=== PATIENT | female | born 1995 | race American Indian/Alaskan Native ===

== ENCOUNTER 2018-05-01 09:07 | Emergency (ER) | payer SELFPAY ==
[2018-05-01 10:05] LABS: Basophils % (Auto) 0.9 % (0.0-1.8); Eosinophils # (Auto) 0.1 K/mm3 (0.0-0.4); Eosinophils % (Auto) 2.1 % (0.0-4.3); Hematocrit 34.7 % (30.3-42.9); Hemoglobin 11.1 gm/dl (10.1-14.3); Lymphocytes # (Auto) 2.3 K/mm3 (1.2-5.4); Lymphocytes % (Auto) 42.3 % (13.4-35.0); Mean Corpuscular HGB Conc 32 % (30-34); Mean Corpuscular Volume 73 fl (79-97); Monocytes # (Auto) 0.4 K/mm3 (0.0-0.8); Monocytes % (Auto) 6.6 % (0.0-7.3); Platelet Count 311 K/mm3 (140-440); Red Blood Count 4.78 M/mm3 (3.65-5.03)
[2018-05-01 10:14] LABS: Mean Corpuscular Hemoglobin 23 pg (28-32)
--- NOTE | 2018-05-01 10:29 | Emergency Department Report ---
ED General Adult HPI - General Chief complaint: Arrhythmia/Palpitations Stated complaint: ANXIETY Time Seen by Provider: 05/01/18 10:12 Source: patient Mode of arrival: Ambulatory Limitations: No Limitations - History of Present Illness Initial comments: Ms. Snell is a 22-year-old female presents with 'feeling shaky". She has history of asthma and anemia. She stated that all of a sudden she just felt shaky. She was about to the ER by the father of her daughter. She denied drug use. She just felt "shaky". She denies anxiety or depression. She denies pain. She denies shortness of breath. -: Sudden Associated Symptoms: denies other symptoms - Related Data Previous Rx's Medication Instructions Recorded Last Taken Type HYDROcodone/APAP 10-325 [[place] 1 each PO Q4-6H PRN #20 tablet 03/24/14 Unknown Rx 10/325] Sulfamethoxazole/Trimethoprim 1 each PO Q12H #14 tablet 03/24/14 Unknown Rx [Bactrim Ds] Allergies Allergy/AdvReac Type Severity Reaction Status Date / Time No Known Allergies Allergy Unverified 03/24/14 01:24 ED Review of Systems ROS: Stated complaint: ANXIETY Other details as noted in HPI Comment: All other systems reviewed and negative Constitutional: denies: fever, malaise Respiratory: denies: cough Cardiovascular: palpitations. denies: chest pain ED Past Medical Hx - Past Medical History Previous Medical History?: Yes Hx Asthma: Yes Additional medical history: anemia - Surgical History Past Surgical History?: Yes Additional Surgical History: - Social History Smoking Status: Never Smoker Substance Use Type: Marijuana - Medications Home Medications: Home Medications Medication Instructions Recorded Confirmed Last Taken Type HYDROcodone/APAP 10-325 [[place] 1 each PO Q4-6H PRN #20 tablet 03/24/14 Unknown Rx 10/325] Sulfamethoxazole/Trimethoprim 1 each PO Q12H #14 tablet 03/24/14 Unknown Rx [Bactrim Ds] ED Physical Exam - General Limitations: No Limitations General appearance: alert, in no apparent distress, anxious - Head Head exam: Present: atraumatic, normocephalic - Eye Eye exam: Present: normal appearance - ENT ENT exam: Present: mucous membranes moist - Neck Neck exam: Present: normal inspection. Absent: tenderness, meningismus - Respiratory Respiratory exam: Present: normal lung sounds bilaterally. Absent: respiratory distress, wheezes, rales, rhonchi - Cardiovascular Cardiovascular Exam: Present: regular rate, normal rhythm, normal heart sounds. Absent: systolic murmur, diastolic murmur, rubs, gallop - GI/Abdominal GI/Abdominal exam: Present: soft, normal bowel sounds. Absent: distended, tenderness, guarding, rebound - Extremities Exam Extremities exam: Present: normal inspection - Back Exam Back exam: Present: normal inspection - Neurological Exam Neurological exam: Present: alert, oriented X3 - Psychiatric Psychiatric exam: Present: normal affect, anxious, other (tearful) - Skin Skin exam: Present: warm, dry, intact, normal color. Absent: rash ED Course Vital Signs 05/01/18 05/01/18 05/01/18 09:24 09:35 09:46 Temperature 98.1 F Pulse Rate 164 H 123 H 94 H Respiratory 18 22 16 Rate Blood Pressure 156/78 149/67 O2 Sat by Pulse 100 100 100 Oximetry 05/01/18 05/01/18 05/01/18 09:47 10:00 10:16 Temperature Pulse Rate 112 H 91 H 97 H Respiratory 13 17 Rate Blood Pressure 117/63 149/67 O2 Sat by Pulse 100 100 Oximetry 05/01/18 05/01/18 05/01/18 10:30 10:46 11:00 Temperature Pulse Rate 84 87 Respiratory 14 16 Rate Blood Pressure 108/65 108/65 108/65 O2 Sat by Pulse 100 100 82 L Oximetry 05/01/18 05/01/18 05/01/18 11:16 11:30 11:46 Temperature Pulse Rate Respiratory Rate Blood Pressure 115/61 116/69 116/69 O2 Sat by Pulse 99 99 100 Oximetry 05/01/18 05/01/18 05/01/18 12:00 12:16 12:30 Temperature Pulse Rate Respiratory Rate Blood Pressure 109/65 116/69 113/55 O2 Sat by Pulse 100 98 100 Oximetry ED Medical Decision Making - Lab Data Result diagrams: 05/01/18 09:56 05/01/18 09:56 - EKG Data -: EKG Interpreted by Me EKG shows normal: sinus rhythm, axis, intervals, QRS complexes, ST-T waves Rate: tachycardia - EKG Data 05/01/18 10:29 Time Obtained 0917 Sinus tachycardia rate 118 beats a minute normal axis normal intervals no ST-T signs of ischemia no signs of pericarditis - Medical Decision Making His labs presents with palpitations. She feels shaky. She is obviously anxious and upset. Similar most of an overdose she cried heavily. She said "I' m not upset.". She denies domestic violence. She denies depression. She denies suicidal or homicidal ideation. He is to stated that she just felt shaky. She denied drug abuse. However she did admit to smoking marijuana to the nurse. She had initially told the nurse that she felt that something was in her joint potentially. After drinking the fruit punch with the father of her daughter, she soon began to feel shaky. He refuses admitted to the ER. However she told me that the father of her daughter actually brought her to the ER. She presented with extreme tachycardia. I suspect she inhaled or smoke drug such marijuana which caused anxiety or paranoia. She denies any threat of domestic violence or sexual assault by the daughter's father. I do not understand why she is being dishonest. Without intervention, tachycardia resolved. She denies chest pain or dyspnea. No indication of PE, Pericarditis, lethal arrhythmia. EKG revealed sinus tachycardia. After observation, patient is calm. Her vital signs are normal. HR 75 bpm. She desired to be discharged. Labs reviewed. UDS+for marijuana Critical care attestation.: If time is entered above; I have spent that time in minutes in the direct care of this critically ill patient, excluding procedure time. ED Disposition Clinical Impression: Anxiety, Accidental marijuana overdose Disposition: DC-01 TO HOME OR SELFCARE Is pt being admited?: No Does the pt Need Aspirin: No Condition: Stable Instructions: Cannabis Abuse (ED), Anxiety (ED) Referrals: [facility] [Outside] - 3-5 Days Time of Disposition: 12:57
[2018-05-01 10:31] LABS: Alanine Aminotransferase 7 units/L (7-56); BUN/Creatinine Ratio 7; Blood Urea Nitrogen 4 mg/dL (7-17); Calcium 8.8 mg/dL (8.4-10.2); Hemolysis Index 14
[2018-05-01 11:19] LABS: HCG Qualitative,Urine Negative (Negative)
[2018-05-01 11:59] LABS: Amphetamine Screen,Urine PRESUMPTIVE NEGATIVE; Benzodiazepines Screen,Urine PRESUMPTIVE NEGATIVE; Cocaine Screen,Urine PRESUMPTIVE NEGATIVE; Methadone Screen,Urine PRESUMPTIVE NEGATIVE; Opiate Screen,Urine PRESUMPTIVE NEGATIVE
[2018-05-01 12:12] LABS: Cannabinoid Screen,Urine PRESUMPTIVE POSITIVE
[2018-05-01 12:35] VITALS: BP 113/55
== END 2018-05-01 13:06 | disposition home or self-care (01) ==
LOC: ED 09:07
DX: T40.7X1A Poisoning by cannabis (derivatives), accidental (unintentional), initial encounter (principal); F41.8 Other specified anxiety disorders; J45.909 Unspecified asthma, uncomplicated; Y92.89 Other specified places as the place of occurrence of the external cause
CPT/HCPCS: 36415; 80053; 80307; 81025; 85025; 93005; 93010; 99283

== ENCOUNTER 2018-05-05 10:18 | Emergency (ER) | payer SELFPAY ==
[2018-05-05 10:32] VITALS: BP 135/75
[2018-05-05] MEDS ORDERED: TYLENOL PO ONE (11:09)
[2018-05-05] MEDS ORDERED: TYLENOL ONE (11:11)
[2018-05-05] MEDS ORDERED: ATIVAN PO ONE (11:43)
--- NOTE | 2018-05-05 12:09 | Emergency Department Report ---
ED General Adult HPI - General Chief complaint: Anxiety Stated complaint: PANIC ATTACK/ANXIETY Time Seen by Provider: 05/05/18 11:40 Source: patient Mode of arrival: Ambulatory Limitations: No Limitations - History of Present Illness Initial comments: This is 22-year-old female who is presenting with anxiety type symptoms. Patient has been getting very upset and tearful with palpitations and elevated heart rate shortness of breath. This is the second episode this week. Patient's states she starts thinking about her children and then that exacerbates the feelings of anxiety. Patient is not homicidal or suicidal at this time. Patient is denying any illicit drug use. Severity scale (0 -10): 8 - Related Data Previous Rx's Medication Instructions Recorded Last Taken Type HYDROcodone/APAP 10-325 [[place] 1 each PO Q4-6H PRN #20 tablet 03/24/14 Unknown Rx 10/325] Sulfamethoxazole/Trimethoprim 1 each PO Q12H #14 tablet 03/24/14 Unknown Rx [Bactrim Ds] ALPRAZolam [Xanax TAB] 0.25 mg PO BID PRN #6 tab 05/05/18 Unknown Rx Allergies Allergy/AdvReac Type Severity Reaction Status Date / Time No Known Allergies Allergy Unverified 03/24/14 01:24 ED Review of Systems ROS: Stated complaint: PANIC ATTACK/ANXIETY Other details as noted in HPI Comment: All other systems reviewed and negative ED Past Medical Hx - Past Medical History Hx Asthma: Yes Additional medical history: anemia - Surgical History Additional Surgical History: - Social History Smoking Status: Former Smoker Substance Use Type: None - Medications Home Medications: Home Medications Medication Instructions Recorded Confirmed Last Taken Type HYDROcodone/APAP 10-325 [[place] 1 each PO Q4-6H PRN #20 tablet 03/24/14 Unknown Rx 10/325] Sulfamethoxazole/Trimethoprim 1 each PO Q12H #14 tablet 03/24/14 Unknown Rx [Bactrim Ds] ALPRAZolam [Xanax TAB] 0.25 mg PO BID PRN #6 tab 05/05/18 Unknown Rx ED Physical Exam - General Limitations: No Limitations General appearance: alert, in no apparent distress, anxious - Head Head exam: Present: atraumatic, normocephalic - Eye Eye exam: Present: normal appearance - ENT ENT exam: Present: mucous membranes moist - Neck Neck exam: Present: normal inspection - Respiratory Respiratory exam: Present: normal lung sounds bilaterally. Absent: respiratory distress, wheezes, rales, rhonchi - Cardiovascular Cardiovascular Exam: Present: normal rhythm, tachycardia, normal heart sounds. Absent: systolic murmur, diastolic murmur, rubs, gallop - GI/Abdominal GI/Abdominal exam: Present: soft, normal bowel sounds. Absent: distended, tenderness, guarding, rebound - Extremities Exam Extremities exam: Present: normal inspection - Back Exam Back exam: Present: normal inspection - Neurological Exam Neurological exam: Present: alert, oriented X3 - Psychiatric Psychiatric exam: Present: normal affect, normal mood - Skin Skin exam: Present: warm, dry, intact, normal color. Absent: rash ED Course Vital Signs 05/05/18 05/05/18 05/05/18 10:29 11:57 11:58 Temperature 98.0 F Pulse Rate 123 H Respiratory 20 18 18 Rate Blood Pressure 135/75 O2 Sat by Pulse 100 Oximetry ED Medical Decision Making - Medical Decision Making Patient was given Ativan to calm her and patient will be referred to [facility] outpatient Critical care attestation.: If time is entered above; I have spent that time in minutes in the direct care of this critically ill patient, excluding procedure time. ED Disposition Clinical Impression: Anxiety Disposition: DC-01 TO HOME OR SELFCARE Is pt being admited?: No Does the pt Need Aspirin: No Condition: Stable Instructions: Anxiety (ED) Prescriptions: ALPRAZolam [Xanax TAB] 0.25 mg PO BID PRN #6 tab PRN Reason: Anxiety Referrals: PRIMARY CARE,MD [Primary Care Provider] - 3-5 Days Time of Disposition: 12:09
== END 2018-05-05 12:19 | disposition home or self-care (01) ==
LOC: ED 10:18
DX: F41.9 Anxiety disorder, unspecified (principal); J45.909 Unspecified asthma, uncomplicated; Z86.2 Personal history of diseases of the blood and blood-forming organs and certain disorders involving the immune mechanism; Z87.891 Personal history of nicotine dependence
CPT/HCPCS: 99282

== ENCOUNTER 2018-11-01 18:11 | Emergency (ER) | payer OTHER ==
--- NOTE | 2018-11-01 19:30 | Emergency Department Report ---
ED Abdominal Pain HPI - General Chief Complaint: Abdominal Pain Stated Complaint: ABD PAIN Time Seen by Provider: 11/01/18 19:09 Source: patient Mode of arrival: Stretcher Limitations: No Limitations - History of Present Illness Initial Comments: 23-year-old female presents to the ED with lower abdominal pain since earlier today. The patient reports urinary frequency as well. Patient states she is [address] 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 Patient denies vaginal bleeding or discharge. MD Complaint: abdominal pain -: days(s) (1) Location: suprapubic Radiation: none Migration to: no migration Severity: moderate Severity scale (0 -10): 8 Quality: sharp Consistency: constant Improves With: nothing Worsens With: nothing Associated Symptoms: denies: vomiting, diarrhea, fever, dysuria - Related Data Previous Rx's Medication Instructions Recorded Last Taken Type HYDROcodone/APAP 10-325 [[place] 1 each PO Q4-6H PRN #20 tablet 03/24/14 Unknown Rx 10/325] Sulfamethoxazole/Trimethoprim 1 each PO Q12H #14 tablet 03/24/14 Unknown Rx [Bactrim Ds] ALPRAZolam [Xanax TAB] 0.25 mg PO BID PRN #6 tab 05/05/18 Unknown Rx Allergies Allergy/AdvReac Type Severity Reaction Status Date / Time No Known Allergies Allergy Unverified 03/24/14 01:24 ED Review of Systems ROS: Stated complaint: ABD PAIN Other details as noted in HPI Comment: All other systems reviewed and negative Constitutional: denies: chills, fever Gastrointestinal: abdominal pain. denies: vomiting, diarrhea Genitourinary: urgency, frequency, other (denies vag bleeding). denies: dysuria, discharge ED Past Medical Hx - Past Medical History Previous Medical History?: Yes Hx Asthma: Yes Additional medical history: anemia - Surgical History Past Surgical History?: Yes Additional Surgical History: - Social History Smoking Status: Current Every Day Smoker Substance Use Type: Alcohol - Medications Home Medications: Home Medications Medication Instructions Recorded Confirmed Last Taken Type HYDROcodone/APAP 10-325 [[place] 1 each PO Q4-6H PRN #20 tablet 03/24/14 Unknown Rx 10/325] Sulfamethoxazole/Trimethoprim 1 each PO Q12H #14 tablet 03/24/14 Unknown Rx [Bactrim Ds] ALPRAZolam [Xanax TAB] 0.25 mg PO BID PRN #6 tab 05/05/18 Unknown Rx ED Physical Exam - General Limitations: No Limitations General appearance: alert, in no apparent distress - Head Head exam: Present: atraumatic, normocephalic - Eye Eye exam: Present: normal appearance - ENT ENT exam: Present: mucous membranes moist - Neck Neck exam: Present: normal inspection - Respiratory Respiratory exam: Present: normal lung sounds bilaterally. Absent: respiratory distress - Cardiovascular Cardiovascular Exam: Present: regular rate, normal rhythm - GI/Abdominal GI/Abdominal exam: Present: soft, tenderness (mild suprapubic). Absent: distended - External exam: Present: normal external exam Speculum exam: Present: vaginal discharge, cervical discharge. Absent: vaginal bleeding Bi-manual exam: Absent: cervical motion tendernes - Extremities Exam Extremities exam: Present: normal inspection - Neurological Exam Neurological exam: Present: alert, oriented X3 - Psychiatric Psychiatric exam: Present: normal affect, normal mood - Skin Skin exam: Present: warm, dry, intact, normal color. Absent: rash ED Course Vital Signs 11/01/18 11/01/18 11/01/18 19:46 19:54 22:03 Temperature 98.4 F Pulse Rate 85 Respiratory 23 18 Rate Blood Pressure 99/47 O2 Sat by Pulse 100 Oximetry 11/01/18 23:00 Temperature 98.4 F Pulse Rate 85 Respiratory 18 Rate Blood Pressure O2 Sat by Pulse Oximetry ED Medical Decision Making - Lab Data Result diagrams: 11/01/18 19:26 11/01/18 19:26 - Radiology Data Radiology results: report reviewed, image reviewed US: single live IUP at 12 wks 2 days. Cardiac activity 166 bpm Radiology reports not crossing into [facility] due to tech issues; results faxed to ED - Medical Decision Making 23-year-old female, 12 weeks , with abdominal pain and urinary frequency. Patient has minimal abdominal tenderness on exam. Pelvic exam revealed cervical and vaginal discharge. Wet prep positive for Trichomonas. UA did not show signs of UTI. Ultrasound shows normal IUP at 12 weeks. Patient given Flagyl for Trichomonas treatment. Patient also given Rocephin and azithromycin for empiric treatment of gonorrhea and chlamydia. Cultures sent. Patient advised to follow up with OB. Return precautions given. We'll discharge at this time. - Differential Diagnosis UTI, threatened AB, missed AB, STD Critical care attestation.: If time is entered above; I have spent that time in minutes in the direct care of this critically ill patient, excluding procedure time. ED Disposition Clinical Impression: Trichomonal vaginitis, 12 weeks gestation of Disposition: TO HOME OR SELFCARE Is pt being admited?: No Condition: Stable Instructions: Abdominal Pain (ED) Referrals: YANI PIZANO MD [Staff Physician] - 3-5 Days ALLIANCE RAKESH DURAND MD [Primary Care Provider] - 3-5 Days PATRICIA OBREGON MD [Staff Physician] - 3-5 Days Time of Disposition: 22:13
[2018-11-01 19:34] LABS: Bilirubin,Urine NEG (Negative); Blood,Urine NEG (Negative); Color,Urine Yellow (Yellow); Mucus,Urine FEW /HPF; Urobilinogen,Urine < 2.0 mg/dL (<2.0)
[2018-11-01 19:38] LABS: Protein,Urine >500 mg/dL (Negative)
[2018-11-01 19:43] LABS: Basophils # (Auto) 0.1 K/mm3 (0.0-0.1); Eosinophils # (Auto) 0.1 K/mm3 (0.0-0.4); Eosinophils % (Auto) 0.8 % (0.0-4.3); Monocytes # (Auto) 0.5 K/mm3 (0.0-0.8); Monocytes % (Auto) 7.5 % (0.0-7.3)
[2018-11-01 19:51] VITALS: BP 99/47
[2018-11-01 20:12] LABS: Basophils % (Auto) 0.6 % (0.0-1.8); Hematocrit 33.1 % (30.3-42.9); Hemoglobin 10.7 gm/dl (10.1-14.3); Lymphocytes # (Auto) 2.4 K/mm3 (1.2-5.4); Lymphocytes % (Auto) 37.4 % (13.4-35.0); Mean Corpuscular HGB Conc 32 % (30-34); Mean Corpuscular Volume 74 fl (79-97); Platelet Count 319 K/mm3 (140-440); Red Blood Count 4.47 M/mm3 (3.65-5.03); Red Cell Distribution Width 14.7 % (13.2-15.2)
[2018-11-01] MEDS ORDERED: TYLENOL PO ONE (20:16)
[2018-11-01] MEDS ORDERED: FLAGYL PO ONE (22:07)
[2018-11-01] MEDS ORDERED: XYLOCAINE 1% MPF 5 mL INFILTRATI ONE (22:10)
[2018-11-01] MEDS ORDERED: ROCEPHIN IM ONE (22:10)
[2018-11-01] MEDS ORDERED: ZITHROMAX PO ONE (22:11)
[2018-11-01] MEDS ORDERED: TYLENOL ONE (22:19)
[2018-11-01 22:39] LABS: BUN/Creatinine Ratio 10; Blood Urea Nitrogen 5 mg/dL (7-17); Calcium 9.4 mg/dL (8.4-10.2); Hemolysis Index 3
--- NOTE | 2018-11-01 23:21 | Ultrasound Report ---
PROCEDURE: US OB <= 14 WEEKS FETUS TECHNIQUE: Real-time transabdominal sonography of the uterus, placenta, amniotic fluid, adnexa, and fetus was performed with image documentation. Measurements were obtained to determine age/size. M-mode Doppler was used to document heartbeat. ADDITIONAL GESTATION: None. HISTORY: abd pain COMPARISONS: None . FINDINGS: CRL: 57.1 mm, which corresponds to a gestational age of: 12 weeks, 2 days. Yolk Sac: Appropriate for gestational age. . Embryonic Cardiac Activity: 1 66 bpm, regular . Gestational Sac: Size and shape are appropriate for gestational age Amniotic fluid: Appropriate for gestational age. Right Ovary: 2.8 x 1.4 x 2.4 centimeters with normal echotexture. Left Ovary: 1.7 x 1.3 x 1.4 cm with normal echotexture . Estimated delivery date: 05/14/2019 . Uterus and adnexa: Normal. IMPRESSION: Single live intrauterine gestation at approximately 12 weeks and 2 days . EDC by US 05/03 . This document is electronically signed by Gerber Cool MD., November 01 2018 09:56:40 PM ET
== END 2018-11-01 23:01 | disposition home or self-care (01) ==
LOC: ED 18:11
DX: O98.311 Other infections with a predominantly sexual mode of transmission complicating pregnancy, first trimester (principal); A59.01 Trichomonal vulvovaginitis; O99.331 Smoking (tobacco) complicating pregnancy, first trimester; O99.011 Anemia complicating pregnancy, first trimester; O99.511 Diseases of the respiratory system complicating pregnancy, first trimester; J45.909 Unspecified asthma, uncomplicated; Z3A.12 12 weeks gestation of pregnancy
CPT/HCPCS: 36415; 76801; 80048; 81001; 84702; 85025; 87086; 87210; 87591; 96372; 99285; J0696

== ENCOUNTER 2018-12-18 00:08 | Emergency (ER) | payer OTHER ==
[2018-12-18 01:00] LABS: Basophils # (Auto) 0.1 K/mm3 (0.0-0.1); Basophils % (Auto) 0.6 % (0.0-1.8); Eosinophils # (Auto) 0.2 K/mm3 (0.0-0.4); Eosinophils % (Auto) 1.7 % (0.0-4.3); Hemoglobin 9.8 gm/dl (10.1-14.3); Lymphocytes # (Auto) 2.8 K/mm3 (1.2-5.4); Mean Corpuscular HGB Conc 33 % (30-34); Mean Corpuscular Volume 74 fl (79-97); Monocytes # (Auto) 0.7 K/mm3 (0.0-0.8); Monocytes % (Auto) 6.1 % (0.0-7.3); Platelet Count 324 K/mm3 (140-440); Red Blood Count 4.03 M/mm3 (3.65-5.03); Red Cell Distribution Width 15.3 % (13.2-15.2)
[2018-12-18 01:25] LABS: Alanine Aminotransferase 10 units/L (7-56); Albumin 3.7 g/dL (3.9-5); BUN/Creatinine Ratio 15; Blood Urea Nitrogen 6 mg/dL (7-17); Hemolysis Index 6
[2018-12-18] MEDS ORDERED: ZOFRAN IV ONE (02:30)
[2018-12-18] MEDS ORDERED: NACL 0.9% 1000 ML 1,000 ML IV ONE (02:30)
--- NOTE | 2018-12-18 02:35 | Emergency Department Report ---
ED Female HPI - General Chief complaint: Abdominal Pain Stated complaint: ABD PAIN Time Seen by Provider: 12/18/18 02:14 Source: patient, EMS Mode of arrival: Ambulatory Limitations: No Limitations - History of Present Illness Initial comments: Patient is a 23-year-old Palestinian female who presents for dysuria frequency urgency abdominal pain bilateral lower quadrant is a 66 weeks patient was seen 1 month ago positive for chlamydia patient was treated empirically however her partner was not treated and she has had multiple encounters with her partner since her treatment now with bilat lower abd pain dysuria and frequency for pas 2 weeks, tp denies vaginal discharge no vaginal bleeding no lower abd pain is described as aching cramping intermittent, symptoms exacerbated by movement symptoms relieved by nothing. MD Complaint: dysuria, pelvic pain Onset/Timin -: week(s) Severity scale (0 -10): 5 Quality: cramping, aching Consistency: intermittent Improves with: none Worsens with: movement Are you Now?: Yes Last Menstrual Period: 08/21/18 EDC: 05/28/19 - Related Data Sexually active: Yes Previous Rx's Medication Instructions Recorded Last Taken Type HYDROcodone/APAP 10-325 [[place] 1 each PO Q4-6H PRN #20 tablet 03/24/14 Unknown Rx 10/325] Sulfamethoxazole/Trimethoprim 1 each PO Q12H #14 tablet 03/24/14 Unknown Rx [Bactrim Ds] ALPRAZolam [Xanax TAB] 0.25 mg PO BID PRN #6 tab 05/05/18 Unknown Rx metroNIDAZOLE [metroNIDAZOLE GEL] 5 gm TP QHS 7 Days #1 gel.w.pump 12/18/18 Unknown Rx Allergies Allergy/AdvReac Type Severity Reaction Status Date / Time No Known Allergies Allergy Unverified 03/24/14 01:24 ED Review of Systems ROS: Stated complaint: ABD PAIN Other details as noted in HPI Constitutional: denies: chills, fever Eyes: denies: eye pain, eye discharge, vision change ENT: denies: ear pain, throat pain Respiratory: denies: cough, shortness of breath, wheezing Cardiovascular: denies: chest pain, palpitations, orthopnea, paroxysmal n octurnal dyspnea Endocrine: no symptoms reported Gastrointestinal: nausea. denies: abdominal pain, vomiting, diarrhea, hematochezia Genitourinary: frequency. denies: urgency, dysuria, hematuria, discharge, abnormal menses, dyspareunia Musculoskeletal: denies: back pain, joint swelling, arthralgia Skin: denies: rash, lesions Neurological: denies: headache, weakness, paresthesias Psychiatric: denies: anxiety, depression Hematological/Lymphatic: denies: easy bleeding, easy bruising ED Past Medical Hx - Past Medical History Previous Medical History?: Yes Hx Asthma: Yes Additional medical history: anemia - Surgical History Past Surgical History?: Yes Additional Surgical History: - Social History Smoking Status: Current Every Day Smoker Substance Use Type: None - Medications Home Medications: Home Medications Medication Instructions Recorded Confirmed Last Taken Type HYDROcodone/APAP 10-325 [[place] 1 each PO Q4-6H PRN #20 tablet 03/24/14 Unknown Rx 10/325] Sulfamethoxazole/Trimethoprim 1 each PO Q12H #14 tablet 03/24/14 Unknown Rx [Bactrim Ds] ALPRAZolam [Xanax TAB] 0.25 mg PO BID PRN #6 tab 05/05/18 Unknown Rx metroNIDAZOLE [metroNIDAZOLE GEL] 5 gm TP QHS 7 Days #1 gel.w.pump 12/18/18 Unknown Rx ED Physical Exam - General Limitations: No Limitations General appearance: alert, in no apparent distress - Head Head exam: Present: atraumatic, normocephalic - Eye Eye exam: Present: normal appearance, PERRL, EOMI - ENT ENT exam: Present: normal exam, mucous membranes moist - Neck Neck exam: Present: normal inspection, full ROM. Absent: tenderness, meningismus, lymphadenopathy, thyromegaly - Respiratory Respiratory exam: Present: normal lung sounds bilaterally. Absent: respiratory distress, wheezes, stridor, chest wall tenderness - Cardiovascular Cardiovascular Exam: Present: regular rate, normal rhythm, normal heart sounds. Absent: systolic murmur, diastolic murmur, rubs, gallop - GI/Abdominal GI/Abdominal exam: Present: soft, normal bowel sounds. Absent: distended, bruit, hernia - Rectal Rectal exam: Present: deferred - External exam: Present: normal external exam. Absent: erythema, swelling, lesions, lacerations, ecchymosis, bleeding Speculum exam: Present: erythema, vaginal discharge, cervical discharge. Absent: vaginal bleeding, foreign body, tissue Bi-manual exam: Absent: cervical motion tendernes - Extremities Exam Extremities exam: Present: normal inspection, full ROM - Back Exam Back exam: Present: normal inspection, full ROM. Absent: CVA tenderness (R), CVA tenderness (L), muscle spasm - Neurological Exam Neurological exam: Present: alert, oriented X3, CN II-XII intact, normal gait - Psychiatric Psychiatric exam: Present: normal affect, normal mood - Skin Skin exam: Present: warm, dry, intact, normal color. Absent: rash ED Medical Decision Making - Lab Data Result diagrams: 12/18/18 00:33 12/18/18 00:33 Labs 12/18/18 12/18/18 12/18/18 00:33 00:33 00:33 WBC 10.9 RBC 4.03 Hgb 9.8 L Hct 30.0 L MCV 74 L MCH 24 L MCHC 33 RDW 15.3 H Plt Count 324 Lymph % (Auto) 26.0 [place] % (Auto) 6.1 Eos % (Auto) 1.7 Baso % (Auto) 0.6 Lymph # 2.8 [place] # 0.7 Eos # 0.2 Baso # 0.1 Seg Neutrophils % 65.6 Seg Neutrophils # 7.2 Sodium 135 L Potassium 4.0 Chloride 100.4 Carbon Dioxide 22 Anion Gap 17 BUN 6 L Creatinine 0.4 L Estimated GFR > 60 BUN/Creatinine Ratio 15 Glucose 79 Calcium 9.0 Total Bilirubin 0.20 AST 36 ALT 10 Alkaline Phosphatase 45 Total Protein 7.0 Albumin 3.7 L Albumin/Globulin Ratio 1.1 HCG, Quant 58125 H Blood Type 12/18/18 01:45 WBC RBC Hgb Hct MCV MCH MCHC RDW Plt Count Lymph % (Auto) [place] % (Auto) Eos % (Auto) Baso % (Auto) Lymph # [place] # Eos # Baso # Seg Neutrophils % Seg Neutrophils # Sodium Potassium Chloride Carbon Dioxide Anion Gap BUN Creatinine Estimated GFR BUN/Creatinine Ratio Glucose Calcium Total Bilirubin AST ALT Alkaline Phosphatase Total Protein Albumin Albumin/Globulin Ratio HCG, Quant Blood Type O POSITIVE - Radiology Data Radiology results: report reviewed, image reviewed single IUP 18 weeks, 2 days , FHR: 150 bpm - Medical Decision Making symptoms improved pt vaginal exam moderate erythema thick white yellow discharge , pt dx with chlamydia 1 month ago however her partner did not receive tx and she is most concerned for reinfection as she has had pelvic pain for last 3 weeks, vaginal exam as above, plan; tx for STD exposure, concern for PID, rocephin 1 gm IM, Azithromycin 1gm po, dc to home with rx for Flagy Gel 5gm nightly x 7 days, Gc/ch cultures are pending pt to have partner present to health department for tx , no sex will apartner until both have completed tx, pt will follow up with OBGYN in 2 days pt verbalized agreement and understanding of discharge plan. Critical care attestation.: If time is entered above; I have spent that time in minutes in the direct care of this critically ill patient, excluding procedure time. ED Disposition Clinical Impression: STD exposure, Abdominal pain during in second trimester Disposition: DC-01 TO HOME OR SELFCARE Is pt being admited?: No Does the pt Need Aspirin: No Condition: Stable Instructions: Abdominal Pain (ED), Sexually Transmitted Diseases (ED) Prescriptions: metroNIDAZOLE [metroNIDAZOLE GEL] 5 gm TP QHS 7 Days #1 gel.w.pump Referrals: JULIUS WILSON MD [Staff Physician] - 3-5 Days Forms: Work/School Release Form(ED) Time of Disposition: 06:35
[2018-12-18] MEDS ORDERED: ROCEPHIN IM ONE (06:00)
[2018-12-18] MEDS ORDERED: XYLOCAINE 1% MPF 5 mL INFILTRATI ONE (06:00)
[2018-12-18] MEDS ORDERED: ZITHROMAX PO ONE (06:00)
--- NOTE | 2018-12-18 06:20 | Ultrasound Report ---
PROCEDURE: US OB >= 14 WEEKS FETUS TECHNIQUE: Real-time transabdominal sonography of the uterus, placenta, amniotic fluid, adnexa, and fetus was performed with image documentation. Measurements were obtained to determine age/size. M-mode Doppler was used to document heartbeat. ADDITIONAL GESTATION: None HISTORY: ABD PAIN PREG COMPARISONS: None. FINDINGS: MATERNAL: Uterus and cervix: The cervix is closed measures 4.8 cm in length. Adnexa and ovaries: Not visualized. IUP: Single live intrauterine gestation. Position: Breech Placental position: Anterior, without previa . Amniotic fluid volume Normal. AMANDA is 6.2 cm. Cardiac activity: Regular rhythm at 150 bpm. ANATOMY: Face/lips/nose: Normal. Cerebral ventricles: Normal. Cisterna magna/cerebellum: Normal. Heart: Normal. Stomach: Normal. Umbilical cord: 3 vessel umbilical cord with normal insertion. Kidneys: Normal. Bladder: Normal. Spine: Normal. Extremities: Normal. BIOMETRY: Biparietal diameter: 4.1 cm corresponding to 18 weeks and 4 days. Head circumference: 15.8 cm corresponding to 18 weeks and 5 days. abdominal circumference: 14.1 cm corresponding to 19 weeks and 3 days. Femur length: 2.7 cm corresponding to 18 weeks and 2 days. Ratio biometry: Normal . Estimated Weight: 261 grams +/- 39 grams. ounces +/- .ounces. . percentile. Mean Gestational Age (composite criteria) based on today's measurements: 18 weeks and 5 days. Estimated Due Date (earliest scan): 05/16/2019. IMPRESSION: Single live intrauterine gestation at 18 weeks 5 days. Estimated due date: 05/16/2019. No anatomic abnormality. This document is electronically signed by Han De La Torre MD., December 18 2018 06:18:29 AM ET
[2018-12-18 07:33] VITALS: BP 110/51
== END 2018-12-18 07:35 | disposition home or self-care (01) ==
LOC: ED 00:08
DX: O26.892 Other specified pregnancy related conditions, second trimester (principal); O99.512 Diseases of the respiratory system complicating pregnancy, second trimester; O99.012 Anemia complicating pregnancy, second trimester; D64.9 Anemia, unspecified; O99.332 Smoking (tobacco) complicating pregnancy, second trimester; Z79.899 Other long term (current) drug therapy; Z3A.18 18 weeks gestation of pregnancy
CPT/HCPCS: 36415; 76805; 80053; 84702; 85025; 86900; 86901; 87210; 87591; 96372; 99284; J0696

== ENCOUNTER 2019-01-01 04:49 | Outpatient (CLI) | payer OTHER ==
[2019-01-01 01:36] LABS: Basophils % (Auto) 0.3 % (0.0-1.8); Eosinophils # (Auto) 0.2 K/mm3 (0.0-0.4); Eosinophils % (Auto) 1.9 % (0.0-4.3); Hematocrit 29.1 % (30.3-42.9); Hemoglobin 9.3 gm/dl (10.1-14.3); Lymphocytes # (Auto) 2.7 K/mm3 (1.2-5.4); Lymphocytes % (Auto) 27.5 % (13.4-35.0); Mean Corpuscular HGB Conc 32 % (30-34); Mean Corpuscular Volume 75 fl (79-97); Monocytes # (Auto) 0.7 K/mm3 (0.0-0.8); Monocytes % (Auto) 7.3 % (0.0-7.3); Platelet Count 310 K/mm3 (140-440); Red Blood Count 3.86 M/mm3 (3.65-5.03); Red Cell Distribution Width 15.1 % (13.2-15.2)
[2019-01-01 01:57] LABS: BUN/Creatinine Ratio 12; Blood Urea Nitrogen 6 mg/dL (7-17); Calcium 8.7 mg/dL (8.4-10.2); Hemolysis Index 1
[2019-01-01 02:05] LABS: Bilirubin,Urine NEG (Negative); Blood,Urine NEG (Negative); Calcium Oxalate Crystals,Urine 2+; Color,Urine Yellow (Yellow); Mucus,Urine 3+ /HPF
--- NOTE | 2019-01-01 04:14 | Emergency Department Report ---
ED Extremity Problem HPI - General Chief complaint: Dizziness Stated complaint: FOOT SWELLING/DIZZINESS Time Seen by Provider: 01/01/19 01:30 Source: patient Mode of arrival: Ambulatory Limitations: No Limitations - History of Present Illness Initial comments: Patient is a A0 23 yo AA female who is approximately 20 weeks gestation and who presents to the ED with c/o acute onset persistent diffuse bilateral lower leg swelling with mild pains, lightheadedness and abdominal cramps for the last 2 days. Patient denies dyspnea, chest pain, dizziness, fever, chills, vaginal bleeding, dysuria, vaginal discharge, diarrhea, nausea and vomiting or back p ain. JOHNSON Complaint: extremity pain, extremity swelling, other (Abdominal pain) -: Sudden, days(s) (2) Location: bilateral lower extremity, other (abdomen) -: Yes myalgia, Yes arthralgia, No fever, No associated dyspnea, No associated chest pain Severity scale (0 -10): 5 Quality: aching, sharp, constant Consistency: constant Improves with: nothing Worsens with: nothing Associated Symptoms: myalgias, other (abdominal pain) - Related Data Previous Rx's Medication Instructions Recorded Last Taken Type HYDROcodone/APAP 10-325 [[place] 1 each PO Q4-6H PRN #20 tablet 03/24/14 Unknown Rx 10/325] Sulfamethoxazole/Trimethoprim 1 each PO Q12H #14 tablet 03/24/14 Unknown Rx [Bactrim Ds] ALPRAZolam [Xanax TAB] 0.25 mg PO BID PRN #6 tab 05/05/18 Unknown Rx metroNIDAZOLE [metroNIDAZOLE GEL] 5 gm TP QHS 7 Days #1 gel.w.pump 12/18/18 Unknown Rx Allergies Allergy/AdvReac Type Severity Reaction Status Date / Time No Known Allergies Allergy Unverified 03/24/14 01:24 ED Review of Systems ROS: Stated complaint: FOOT SWELLING/DIZZINESS Other details as noted in HPI Comment: All other systems reviewed and negative Constitutional: no symptoms reported, see HPI. denies: chills, fever Eyes: as per HPI. denies: eye pain, eye discharge ENT: as per HPI. denies: throat pain, congestion Respiratory: no symptoms reported. denies: cough, orthopnea, shortness of breath, SOB with exertion Cardiovascular: as per HPI. denies: chest pain, palpitations, dyspnea on ex ertion, paroxysmal nocturnal dyspnea Endocrine: no symptoms reported, see HPI Gastrointestinal: as per HPI, abdominal pain. denies: nausea, vomiting, diarrhea, constipation, hematochezia Genitourinary: as per HPI. denies: urgency, frequency, discharge Musculoskeletal: as per HPI, joint swelling, arthralgia, myalgia, other (Bilateral lower leg swelling) Skin: as per HPI Neurological: as per HPI. denies: headache, weakness, paresthesias, vertigo Psychiatric: as per HPI Hematological/Lymphatic: as per HPI ED Past Medical Hx - Past Medical History Previous Medical History?: Yes Hx Asthma: Yes Additional medical history: anemia - Surgical History Past Surgical History?: Yes Additional Surgical History: - Social History Smoking Status: Current Every Day Smoker Substance Use Type: None - Medications Home Medications: Home Medications Medication Instructions Recorded Confirmed Last Taken Type HYDROcodone/APAP 10-325 [[place] 1 each PO Q4-6H PRN #20 tablet 03/24/14 Unknown Rx 10/325] Sulfamethoxazole/Trimethoprim 1 each PO Q12H #14 tablet 03/24/14 Unknown Rx [Bactrim Ds] ALPRAZolam [Xanax TAB] 0.25 mg PO BID PRN #6 tab 05/05/18 Unknown Rx metroNIDAZOLE [metroNIDAZOLE GEL] 5 gm TP QHS 7 Days #1 gel.w.pump 12/18/18 Unknown Rx ED Physical Exam - General Limitations: No Limitations General appearance: alert, in no apparent distress - Head Head exam: Present: atraumatic, normocephalic, normal inspection - Eye Eye exam: Present: normal appearance, PERRL, EOMI Pupils: Present: normal accommodation - ENT ENT exam: Present: normal exam, normal orophraynx, mucous membranes moist, TM's normal bilaterally, normal external ear exam - Neck Neck exam: Present: normal inspection. Absent: tenderness, full ROM - Respiratory Respiratory exam: Present: normal lung sounds bilaterally. Absent: respiratory distress, wheezes, chest wall tenderness - Cardiovascular Cardiovascular Exam: Present: regular rate, normal rhythm, normal heart sounds - GI/Abdominal GI/Abdominal exam: Present: soft, tenderness (suprapubic, no guarding or rebound) - Rectal Rectal exam: Present: deferred - Extremities Exam Extremities exam: Present: normal inspection, full ROM, normal capillary refill - Back Exam Back exam: Present: normal inspection, full ROM. Absent: CVA tenderness (R), CVA tenderness (L) - Neurological Exam Neurological exam: Present: alert, oriented X3, CN II-XII intact, normal gait, reflexes normal - Psychiatric Psychiatric exam: Present: normal affect - Skin Skin exam: Present: warm, dry, intact, normal color ED Course Vital Signs 01/01/19 00:55 Temperature 97.7 F Pulse Rate 95 H Respiratory 18 Rate Blood Pressure 104/55 O2 Sat by Pulse 100 Oximetry ED Medical Decision Making - Lab Data Result diagrams: 01/01/19 01:12 01/01/19 01:12 - Medical Decision Making Patient is alert and oriented x 3 and is in no acute distress with normal vital signs. Patient was evaluated in the ED first, and cleared for [facility] evaluation. The patient's complaint of leg swelling is likely due to the fluid redistribution and dynamics during given that the patient's is advancing. Patient was treated for pain in the ED and transferred to the [facility] for evaluation of her abdominal pain. The [facility] will evaluate her and discharge her home based on their findings. - Differential Diagnosis Muscle strain of extremity, Threatened miscarriage, premature labor Critical care attestation.: If time is entered above; I have spent that time in minutes in the direct care of this critically ill patient, excluding procedure time. ED Disposition Clinical Impression: Leg swelling in in second trimester, Acute urinary tract infection, Abdominal pain during in second trimester Disposition: -01 TO HOME OR SELFCARE Is pt being admited?: No Does the pt Need Aspirin: No Condition: Stable
[~2019-01-01 04:49] MED LIST: ROCEPHIN IM ONE; TYLENOL PO ONE; XYLOCAINE 1% MPF 5 mL INFILTRATI ONE
[2019-01-01 05:05] VITALS: BP 99/58
== END 2019-01-01 06:37 | disposition home or self-care (01) ==
LOC: TRG 04:49 → EDSTATUS 04:50 → TRG 05:00
DX: O47.02 False labor before 37 completed weeks of gestation, second trimester (principal); R42 Dizziness and giddiness; M79.89 Other specified soft tissue disorders; Z3A.21 21 weeks gestation of pregnancy
CPT/HCPCS: 36415; 80048; 81001; 84702; 85025; J0696

== ENCOUNTER 2019-01-27 14:36 | Outpatient (CLI) | payer SELFPAY ==
[2019-01-27 17:30] LABS: Amorphous Crystals,Urine 1+; Bacteria,Urine 2+ /HPF (Negative); Bilirubin,Urine NEG (Negative); Blood,Urine NEG (Negative); Color,Urine Yellow (Yellow); Mucus,Urine FEW /HPF; Urobilinogen,Urine < 2.0 mg/dL (<2.0)
[2019-01-27 17:35] LABS: Amphetamine Screen,Urine PRESUMPTIVE NEGATIVE; Benzodiazepines Screen,Urine PRESUMPTIVE NEGATIVE; Cocaine Screen,Urine PRESUMPTIVE NEGATIVE; Methadone Screen,Urine PRESUMPTIVE NEGATIVE; Opiate Screen,Urine PRESUMPTIVE NEGATIVE
[2019-01-27 17:51] LABS: Cannabinoid Screen,Urine PRESUMPTIVE POSITIVE
[2019-01-27] MEDS ORDERED: LACTATED RINGERS 500 ML IV ONE (17:51)
[2019-01-27] MEDS ORDERED: BRETHINE SUB-Q ONE (19:41)
[2019-01-27] MEDS ORDERED: BRETHINE ONE (19:42)
[2019-01-27 22:35] VITALS: BP 103/55
== END 2019-01-27 22:55 | disposition home or self-care (01) ==
LOC: TRG 14:36
PROVIDERS: ATTEND Obstetrics & Gynecology
DX: O62.9 Abnormality of forces of labor, unspecified (principal); O99.332 Smoking (tobacco) complicating pregnancy, second trimester; F17.200 Nicotine dependence, unspecified, uncomplicated; J45.909 Unspecified asthma, uncomplicated; Z3A.24 24 weeks gestation of pregnancy
CPT/HCPCS: 80307; 81001; 96360; 96372; J3105; J7120